=== PATIENT | male | born 1970 | race Asian ===

== ENCOUNTER 2018-03-04 13:54 | Emergency (ER) | payer BC ==
[~2018-03-04] VITALS: Ht 167.6 cm; Wt 93.9 kg
[2018-03-04 14:01] VITALS: Ht 167.6 cm; Wt 93.9 kg
[2018-03-04 15:13] LABS: BASOPHIL % 0.3 % (0-2); PLATELET COUNT 211 x10^3mcL (130-400); RED CELL DISTRIBUTION WIDTH 12.6 % (11.5-14.5)
[2018-03-04 15:21] LABS: CARBON DIOXIDE 30.1 mmol/L (21-32); CHLORIDE SERUM 103 mmol/L (98-107); CREATININE SERUM 0.8 mg/dL (0.7-1.3); GFR1 > 60 mL/min; GLUCOSE SERUM 137 mg/dL (74-106); POTASSIUM SERUM 3.9 mmol/L (3.5-5.1); SODIUM SERUM 139 mmol/L (136-145)
[2018-03-04 15:28] LABS: ALBUMIN 4.5 g/dL (3.4-5.0); ALKALINE PHOSPHATASE 49 U/L (46-116); ALT/SGPT 212 U/L (16-63); AMYLASE 47 U/L (25-115); AST/SGOT 82 U/L (15-37); BILIRUBIN TOTAL 0.7 mg/dL (0.20-1.00); LIPASE 96 IU/L (73-393); TOTAL PROTEIN, SERUM 7.8 g/dL (6.4-8.2)
[2018-03-04 17:21] VITALS: BP 150/90
== END 2018-03-04 17:20 | disposition home or self-care (01) ==
LOC: ED 13:54
PROVIDERS: Emergency Medicine
DX: R10.12 Left upper quadrant pain (principal); F17.210 Nicotine dependence, cigarettes, uncomplicated; R11.0 Nausea
CPT/HCPCS: 99406; J1885; J2405; J3010; J3490